=== PATIENT | male | born 1960 ===

== ENCOUNTER 2020-03-16 16:08 | Outpatient (CLI) | payer BC, SELFPAY ==
--- NOTE | ~2020-03-16 | XR_ITS ---
EXAMINATION: XR chest 2V DATE: 03/16/2020 16:28 INDICATION: Cough. TECHNIQUE: Frontal and lateral views of the chest were obtained. COMPARISON: CT abdomen and pelvis 08/28/2008 FINDINGS: There are mild patchy airspace opacities in the mid and lower lung zones. No pleural effusi on or pneumothorax. Cardiomegaly is noted. There is a benign bone island in right sixth rib. IMPRESSION: 1. Mild patchy airspace opacities in the mid and lower lung zones, consistent with atypical pneumonia such as COVID-19 pneumonia versus mild pulmonary edema. 2. Cardiomegaly. Reviewed, dictated and finalized at location B. AIR CONDITIONING MECHANIC IMPRESSION: 1. Mild patchy airspace opacities in the mid and lower lung zones, consistent w ith atypical pneumonia such as COVID-19 pneumonia versus mild pulmonary edema. 2. Cardiomegaly.
== END 2020-03-16 16:09 | disposition home or self-care (01) ==
PROVIDERS: PCP Family Medicine; Visit Provider Nurse Practitioner Family
DX: R05 Cough (principal); I51.7 Cardiomegaly; R91.8 Other nonspecific abnormal finding of lung field
CPT/HCPCS: 71046

== ENCOUNTER 2020-03-18 09:26 | Outpatient (NON) | payer BC, SELFPAY ==
[2020-03-19 00:44] LABS: SARS-CoV-2 RNA PCR Positive
== END 2020-03-18 09:27 ==
PROVIDERS: PCP Family Medicine; Visit Provider Nurse Practitioner Family
DX: U07.1 COVID-19 (principal)
CPT/HCPCS: 87635; C9803; U0003

== ENCOUNTER → 2020-04-24 14:41 | Outpatient (CLI) | payer BC, SELFPAY ==
--- NOTE | ~2020-04-24 | XR_ITS ---
EXAMINATION: XR chest 2V DATE: 04/24/2020 14:51 INDICATION: Pneumonia, unspecified organism. TECHNIQUE: Frontal and lateral views of the chest were obtained. COMPARISON: Chest 2 views 03/16/2020 FINDINGS: There are mild peripheral airspace opacities in right mid and upper lung zones. No pleural effusion or pneumothorax. The heart size is normal. IMPRESSION: 1. Mild peripheral airspace opacities in right mid and upper lung zones with improvement, consistent with pneumonia. Reviewed, dictated and finalized at location B. GHT RATE ANALYST IMPRESSION: 1. Mild peripheral airspace opacities in right mid and upper lung zones with im provement, consistent with pneumonia.
== END ==
PROVIDERS: PCP Family Medicine; Visit Provider Physician Assistant Medical
DX: J18.9 Pneumonia, unspecified organism (principal); R91.8 Other nonspecific abnormal finding of lung field
CPT/HCPCS: 71046

== ENCOUNTER → 2020-05-15 07:23 | Outpatient (CLI) | payer BC, SELFPAY ==
--- NOTE | ~2020-05-15 | XR_ITS ---
EXAMINATION: XR chest 2V 05/15/2020 07:52 INDICATION: Pneumonia PROCEDURE: PA and lateral views of the chest COMPARISON: Comparison to multiple prior studies sequentially, with oldest reviewed study dated 03/07. FINDINGS: The lungs are clear. The cardiomediastinal silhouette is within normal limits. There are no pleural effusions. There is no pneumothorax suspected. IMPRESSION: 1: NO ACUTE CARDIOPULMONARY DISEASE. Reviewed, dictated and finalized at location B. NOSTIC RADIOLOGIST
== END ==
PROVIDERS: PCP Physician Assistant Medical; Visit Provider Physician Assistant Medical
DX: J18.9 Pneumonia, unspecified organism (principal)
CPT/HCPCS: 71046

== ENCOUNTER → 2020-05-31 14:32 | Outpatient (CLI) | payer BC, SELFPAY ==
--- NOTE | ~2020-05-31 | XR_ITS ---
XR lumbar spine 2-3V DATE: 05/31/2020 14:46 INDICATION: Lumbar radiculopathy TECHNIQUE: AP, lateral, coned lateral lumbosacral views COMPARISON: 01/31/2016 MRI lumbar spine FINDINGS: Diffuse osteopenia. There is minimal levoscoliosis of the lumbar spine. There are bridging osteophytes throughout L1-L4 and prominent anterior spurring at L4-5 and to a less er extent L5-S1. Disc spaces are relatively intact. No fracture or bone destruction is evident. The included T12-L5 pedicles are intact. No spondylolisthesis. The sacroiliac joints appear unremarkable. Approximately 4.5 mm calcification overlying the lower pole left kidney, likely a calcified left delia l calculus IMPRESSION: Osteopenia Minimal levoscoliosis Degenerative spurring Probable 4.5 mm lower pole left renal calcified calculus Reviewed, dictated and finalized at location A. ASSOCIATE
== END ==
PROVIDERS: PCP Physician Assistant Medical; Visit Provider Nurse Practitioner Family
DX: M54.16 Radiculopathy, lumbar region (principal); M85.88 Other specified disorders of bone density and structure, other site
CPT/HCPCS: 72100

== ENCOUNTER → 2020-07-04 12:26 | Outpatient (CLI) | payer BC, SELFPAY ==
--- NOTE | ~2020-07-04 | DEXA_ITS ---
Bone Density Report Name: Ilir Noble Age: 60 Sex: Male Ethnicity: White Date of : 1960 Indication: Osteopenia; Other specified disorders of bone density and structure Referring Provider: Rosita Chu Study: Bone densitometry was performed. Exam Date: July 04, 2020 Accession number: [id number] Bone Density: Region BMD T-score Z-score Classification AP Spine (L1, L2) 1.081 0.3 0.8 Normal Femoral Neck (Left) 0.820 -0.8 0.1 Normal Total Hip (Left) 1.014 -0.1 0.3 Normal Femoral Neck (Right) 0.823 -0.8 0.1 Normal Total Hip (Right) 0.923 -0.7 -0.3 Normal Total Hip Mean 0.969 -0.4 0.0 Normal World Health Organization criteria for BMD impression classify patients as: Normal (T-score at or above -1.0), Osteopenia (T-score between -1.0 and -2.5), or Osteoporosis (T-score at or below -2.5). 10-year Fracture Risk: FRAX not reported because: All T-scores for Spine Total, Hip Total, Femoral Neck at or above -1.0 Clinical Information Provided by Patient: Patient maximum height was 72.0 Does not regularly consume dairy products Impression: The patient has normal bone mass. Discussion: BONE DENSITY IS ABOVE THE MINIMUM DESIRABLE LEVEL AT ALL SKELETAL SITES TESTED. This patient?s bone mineral density is above the minimum desirable level (T-score -1.0 or better) at all sites measured. The patient should follow a healthful lifestyle (good nutrition with adequate calcium and vitamin D, and appropriate weight-bearing exercise). Follow-Up: Consider repeating this study in 5 years or sooner if there is some new clinical indication. Reported by: [facility] on 07/04/2020 1:14:00 PM. Reviewed, dictated and finalized at location ANiurka GERBER
== END ==
PROVIDERS: PCP Family Medicine; Visit Provider Physician Assistant Medical
DX: M85.88 Other specified disorders of bone density and structure, other site (principal)
CPT/HCPCS: 77080

== ENCOUNTER → 2020-08-04 08:10 | Outpatient (CLI) | payer BC, SELFPAY ==
--- NOTE | ~2020-08-04 | XR_ITS ---
XR abdomen/kub 1V 08/04/2020 08:27 Indication: Kidney stones Procedure: KUB Comparison: 08/28/2008 Findings: There are clustered stones in the lower pole of the left kidney. Bowel gas pattern is nonob structive. Mild lumbar spondylosis. Moderate osteoarthritis of the hips. Impression: 1: Left nephrolithiasis. Reviewed, dictated and finalized at location B. Impression: 1: Left nephrolithiasis.
== END ==
DX: N20.0 Calculus of kidney (principal)
CPT/HCPCS: 74018

== ENCOUNTER → 2020-08-30 08:32 | Outpatient (CLI) | payer BC, SELFPAY ==
--- NOTE | ~2020-08-30 | MR_ITS ---
EXAMINATION: MR lumbar spine wo con DATE: 08/30/2020 09:06 INDICATION: Lumbago. Sciatica. TECHNIQUE: Magnetic resonance imaging (MRI) of the lumbar spine was performed without intravenous con trast. Sequences included sagittal T2-weighted FSE, sagittal T2-weighted FS FSE, sagittal T1-weighted FSE, and axial T2-weighted FSE. COMPARISON: Lumbar spine MRI 01/31/2016, chest 2 views 03/16/2020 FINDINGS: There is 8 degrees levocurvature of lumbar spine. Vertebral body heights are normal. Interv ertebral disc heights are normal. There are anterior endplate osteophytes at all levels. The distal s antonia cord signal intensity is normal. The conus medullaris is at L1-L2. The following disc levels ar e specifically discussed: L1-L2: There is a central extrusion. There is moderate right and mild left facet joint osteoarthritis . There is no neural foraminal stenosis. There is mild central canal stenosis. L2-L3: There is a left foraminal protrusion. There is moderate bilateral facet joint osteoarthritis. There is mild left neural foraminal stenosis. There is no central canal stenosis. L3-L4: The disc is mildly bulging. There is moderate right and severe left facet joint osteoarthritis . There is mild bilateral neural foraminal stenosis. There is no central canal stenosis. L4-L5: The disc is bulging. There is severe right and moderate left facet joint osteoarthritis. There is mild bilateral neural foraminal stenosis. There is mild central canal stenosis. L5-S1: The disc does not extend beyond the endplate margin. There is severe bilateral facet joint ost eoarthritis. There is mild bilateral neural foraminal stenosis. There is no central canal stenosis. IMPRESSION: 1. Mild lumbar spondylosis. Reviewed, dictated and finalized at location B. IMPRESSION: 1. Mild lumbar spondylosis.
== END ==
PROVIDERS: PCP Family Medicine; Visit Provider Physician Assistant Medical
DX: M54.40 Lumbago with sciatica, unspecified side (principal); M47.896 Other spondylosis, lumbar region
CPT/HCPCS: 72148

== ENCOUNTER → 2020-11-01 11:24 | Outpatient (CLI) | payer BC, SELFPAY ==
--- NOTE | ~2020-11-01 | XR_ITS ---
EXAMINATION: XR abdomen/kub 1V INDICATION: Left-sided kidney stones TECHNIQUE: Supine views of the abdomen were obtained on 2 radiographs. COMPARISON: 08/04/2020 FINDINGS: There are clustered stones in the lower pole of the left kidney which measure up to 3 mm. N o definite interval change is identified. No stones are identified in the right kidney, along the exp ected course of ureters, or in the region of the urinary bladder. The bowel gas pattern is normal. Th e visualized lung bases are clear. There is moderate osteoarthritis of the hips. IMPRESSION: 1. Stable left nephrolithiasis. Reviewed, dictated and finalized at location A.
== END ==
DX: N20.0 Calculus of kidney (principal)
CPT/HCPCS: 74018

== ENCOUNTER 2022-04-22 12:55 | Outpatient (CLI) | payer BC, SELFPAY ==
[2022-04-22 13:48] LABS: Influenza A QL RT-PCR Negative (Negative); Influenza B QL RT-PCR Negative (Negative); RSV RNA, RT-PCR Negative (Negative); SARS-CoV-2 RNA PCR Negative
== END 2022-04-22 12:56 | disposition home or self-care (01) ==
LOC: ANHLAB 12:57
PROVIDERS: PCP Family Medicine; Visit Provider Family Medicine
DX: J02.9 Acute pharyngitis, unspecified (principal); Z20.822 Contact with and (suspected) exposure to COVID-19
CPT/HCPCS: 87637

== ENCOUNTER → 2022-04-26 08:43 | Outpatient (CLI) | payer BC, SELFPAY ==
--- NOTE | ~2022-04-26 | XR_ITS ---
Clinical Indication: Cough PA and lateral views of the chest: Comparison: 05/15/2020 Findings: The lungs are clear, without evidence of focal consolidation or pleural effusion. Cardiome diastinal silhouette is within normal limits. Bones and soft tissues are unremarkable. Impression: Normal chest. Reviewed, dictated and finalized at [facility]. E JUMPER Impression: Normal chest.
== END ==
PROVIDERS: PCP Family Medicine; Visit Provider Nurse Practitioner Family
DX: R05.9 Cough, unspecified (principal); R06.02 Shortness of breath
CPT/HCPCS: 71046

== ENCOUNTER → 2022-08-01 10:22 | Outpatient (CLI) | payer BC, SELFPAY ==
--- NOTE | ~2022-08-01 | MR_ITS ---
MRI of the right knee Clinical history: Pain Technique: Coronal proton density and proton density-weighted images, sagittal proton-density and T2 fat-sat images, and axial proton-density fat-saturated images were acquired. Findings: Anterior and posterior cruciate ligaments are intact. Medial collateral ligament and the la teral collateral ligament convex are intact. Popliteus tendon is intact. Lateral meniscus is intact, without evidence of tear. There is complex tearing of the posterior horn and body of medial meniscus, with probable flipped or displaced fragment into the medial gutter. There is mild chondromalacia at the medial joint line. Articular cartilage in the lateral compartment and femoral trochlea is well preserved. There is focal moderate to high-grade chondral lesion at the patellar apex, with focal subchondral cystic change. There is extensive amorphous marrow edema in th e medial femoral condyle region. Extensor mechanism is intact. Small to moderate joint effusion present. Moderate Nair's cyst present . There is prepatellar subcutaneous soft tissue edema. Impression: Extensive amorphous marrow edema of the medial femoral condyle, most likely representing bone contusi on. No fracture seen. Complex tearing of the posterior horn and medial meniscus, as detailed above, probable displaced frag ment into the medial gutter. Focal areas of chondromalacia, as detailed above, at the medial joint line and patellar apex. [id number] joint effusion with moderate Nair's cyst. Prepatellar subcutaneous soft tissue edema. Reviewed, dictated and finalized at location . Impression: Extensive amorphous marrow edema of the medial femoral condyle, most likely rep resenting bone contusion. No fracture seen. Complex tearing of the posterior horn and medial meniscus, as detailed above, p robable displaced fragment into the medial gutter. Focal areas of chondromalacia, as detailed above, at the medial joint line and patellar apex. [id number] joint effusion with moderate Nair's cyst. Prepatellar subcutaneous soft tissue edema.
== END ==
PROVIDERS: PCP Physician Assistant Medical
DX: R93.7 Abnormal findings on diagnostic imaging of other parts of musculoskeletal system (principal); M22.41 Chondromalacia patellae, right knee; M71.21 Synovial cyst of popliteal space [Baker], right knee
CPT/HCPCS: 73721

== ENCOUNTER 2024-07-28 11:00 | Outpatient (CLI) | payer BC, SELFPAY ==
--- NOTE | ~2024-07-28 | XR_ITS ---
Right elbow Technique: AP, oblique, and lateral views were obtained. Clinical History: Pain Findings: No acute fracture or dislocation is seen. Osseous alignment is anatomic. Joint spaces are p reserved. There is no displacement of the fat pads, and soft tissues are unremarkable. Impression: Unremarkable radiographs. Reviewed, dictated and finalized at location . Impression: Unremarkable radiographs.
== END 2024-07-28 11:01 | disposition home or self-care (01) ==
PROVIDERS: PCP Physician Assistant Medical
DX: M25.521 Pain in right elbow (principal)
CPT/HCPCS: 73080